=== PATIENT | male | born 1995 | race Caucasian/White ===

== ENCOUNTER 2021-07-24 14:38 | Emergency (ER) | payer MEDICAID ==
[2021-07-24 14:53] VITALS: BP 150/103
--- NOTE | 2021-07-24 16:43 | XRAY Report ---
PROCEDURE: Chest 2 View X-Ray INDICATIONS: chest discomfort TECHNIQUE: 2 view(s) of the chest. COMPARISON: None. FINDINGS: Surgical changes and devices: None. Lungs and pleura: No pleural effusions or pneumothorax. Lungs are clear. Mediastinum: Mediastinal contours are normal. Heart size is normal. Bones and chest wall: No suspicious bony abnormalities. Soft tissues appear unremarkable. IMPRESSION: Normal chest x-ray Reviewed by: John Faustin MD on 07/24/2021 3:41 PM AKDT Approved by: John Faustin MD on 07/24/2021 3:41 PM AKDT Station ID: [id number]
== END 2021-07-24 16:53 | disposition left against medical advice (07) ==
LOC: ED 14:38
DX: Z53.21 Procedure and treatment not carried out due to patient leaving prior to being seen by health care provider (principal)